=== PATIENT | female | born 1990 | race Two or more races ===

== ENCOUNTER 2016-11-02 22:46 | Emergency (ER) | payer OTHER ==
[2016-11-02] MEDS ORDERED: IOPAMIDOL 370 (76%) 100 ML VIAL IV ONE (22:47)
[2016-11-02] MEDS ORDERED: IBUPROFEN 600 MG TABLET ONE (23:23)
[2016-11-02] MEDS ORDERED: ACETAMINOPHEN 325 MG TABLET ONE (23:23)
[2016-11-02] MEDS ORDERED: LACTATED RINGERS 1,000 ML ONE (23:23)
[2016-11-02 23:49] LABS: PH,URINE 6.5 (5.0-8.0); URINE BILIRUBIN NEGATIVE (NEGATIVE); URINE BLOOD 4+ (NEGATIVE); URINE GLUCOSE (UA) NEGATIVE (NEGATIVE); URINE LEUKOCYTE ESTERASE TRACE (NEGATIVE); URINE NITRITE NEGATIVE (NEGATIVE); URINE PROTEIN 2+ (NEGATIVE); URINE UROBILINOGEN NORMAL (0-1 mg/dl)
[2016-11-02 23:56] LABS: HCG,QUALITATIVE URINE NEGATIVE
[2016-11-02 23:57] LABS: URINE APPEARANCE SL CLOUDY; URINE COLOR DARK YELLOW
[2016-11-03 00:04] LABS: URINE EPITHELIAL CELLS 15-20 /hpf; URINE RBC >100 /hpf
[2016-11-03 00:05] LABS: URINE BACTERIA TRACE
[2016-11-03 01:07] LABS: ABSOLUTE NEUTROPHIL COUNT 10.7 K/mm3 (1.8-7.7); BASO % 0.2 % (0.2-1.0); EOS % 0.1 % (0.9-2.9); HEMATOCRIT 34.5 % (37.0-47.0); HEMOGLOBIN 11.6 gm/l (12.0-16.0); IMM NEUT # 0.1 K/mm3 (0-0.2); IMM NEUT% 1.1 % (0-1); LYMPH # 1.1 (1.0-4.8); LYMPH % 8.2 % (15-45); MEAN CELL VOLUME 85.2 fl (81.0-99.0); MEAN CORPUSCULAR HEMOGLOBIN 28.6 pg (27.0-31.0); MEAN CORPUSCULAR HGB CONC 33.6 g/dl (33.0-37.0); MEAN PLATELET VOLUME 10.4 fl (7.4-10.4); MONO # 0.9 (0.0-0.8); MONO % 7.1 % (4-12); NEUT % 83.3 % (43-75); PLATELET COUNT 210 K/mm3 (130-400); RED CELL DISTRIBUTION WIDTH 13.1 % (11.5-14.5)
[2016-11-03 01:26] LABS: I-STAT CREATININE 0.8 mg/dL (0.6-1.3)
[2016-11-03] MEDS ORDERED: SODIUM CHLORIDE 0.9% 100 ML IV ONE (01:59)
[2016-11-03] MEDS ORDERED: CEFTRIAXONE 1 GRAM DUPLEX 50 ML IV ONE (01:59)
[2016-11-03] MEDS ORDERED: POTASSIUM CHLORIDE 20MEQ/100ML 100 ML IV ONE ×2 (01:59→06:43)
[2016-11-03] MEDS ORDERED: DOXYCYCLINE HYCLATE 100 MG IV VIAL ONE (01:59)
[2016-11-03] MEDS ORDERED: LACTATED RINGERS 1,000 ML ONE (02:24)
[2016-11-03] MEDS ORDERED: VANCOMYCIN HCL 1 G/20 ML VIAL ONE (03:21)
[2016-11-03] MEDS ORDERED: SODIUM CHLORIDE 0.9% 250 ML IV ONE (03:21)
[2016-11-03 03:52] LABS: VENOUS BLOOD GAS BASE EXCESS -0.1 mmol/L (-2.0-2.0); VENOUS BLOOD GAS HCO3 23.3 mmol/L (22.0-27.0)
[2016-11-03] MEDS ORDERED: PROCHLORPERAZINE 5 MG/ML 2 ML VIAL ONE (04:31)
[2016-11-03] MEDS ORDERED: SODIUM CHLORIDE 0.9% 1,000 ML ONE (06:42)
--- NOTE | 2016-11-03 08:14 | RAD ---
PORTABLE CHEST RADIOGRAPH HISTORY: Right central line placement. Frontal portable chest radiograph dated 11/03/2016. COMPARISON: None. FINDINGS: FOCAL AIRSPACE OPACITY: Patchy multifocal airspace opacity predominantly by basilar in distribution. A nodular appearance is identified at the upper lobe distributions. PLEURAL EFFUSION: Small right pleural effusions congested. CARDIOMEDIASTINAL SILHOUETTE: Nonenlarged. Right internal jugular catheter, tip projecting over superior vena cava. PNEUMOTHORAX: None identified. OSSEOUS STRUCTURES: No grossly destructive lesions. IMPRESSION: Multifocal airspace abnormality, subsequent CT examination has been acquired. Correlate for multifocal pneumonia. Right internal jugular catheter, no pneumothorax.
--- NOTE | 2016-11-03 08:20 | CT ---
CHEST CTA HISTORY: Left-sided chest pain with dyspnea and tachycardia. TECHNIQUE: Following the administration of 80 mL Isovue-370 intravenous contrast, contiguous axial images were acquired from the thoracic inlet to the diaphragmatic hiatus for CT pulmonary angiography. 3-D imaging was not performed. FINDINGS: PULMONARY ARTERIAL TREE: Technically adequate enhancement: No dominant filling defects. THORACIC AORTA: Normal caliber. No evidence of dissection. LUNGS: A mixture of ill-defined nodules and masses are identified, interspersed amongst by basilar airspace abnormality, right greater than left. Notably, a few left-sided lesions appear cavitary in nature, measuring up to 2.2 cm in size at the left lower lobe, up to 1.3 cm in size at the lingula. Trace right pleural effusion.. SUNNY AND MEDIASTINUM: Right hilar lymph node measures 12 mm in width. Previous carinal lymph node measures 10 mm in width. Aortopulmonary window lymph node measures 10 mm in width. Subcarinal lymph node measures 12 mm in width. A left hilar lymph node measures 10 mm in width. Evidence of right internal jugular catheter. AXILLAE: No grossly enlarged lymph nodes. UPPER ABDOMEN:No gross mass effect. OSSEOUS STRUCTURES: No grossly destructive lesions. IMPRESSION: 1. No CTA evidence of proximal order pulmonary embolus. 2. Mixed airspace disease and ill-defined nodules/masses of moderately severe extent, several which demonstrate early cavitary change. Findings worrisome for multifocal pneumonia with abscess formation, atypical infection is possible. The differential includes septic emboli. Metastatic lesions with necrosis considered significantly less likely. Mild hilar and mediastinal adenopathy. 3. Right-sided internal jugular catheter. Preliminary report relayed to the Emergency Medicine medical service by Dr. Morris on 11/03/2016 at 0817 hours.
[2016-11-03 10:53] LABS: AMPHETAMINES/METHAMPHETAMINES POSITIVE (NEGATIVE); COCAINE NEGATIVE (NEGATIVE); MARIJUANA POSITIVE (NEGATIVE); METHADONE NEGATIVE (NEGATIVE); OPIATES POSITIVE (NEGATIVE); TRICYCLIC ANTIDEPRESSANTS NEGATIVE (NEGATIVE)
[2016-11-03 16:21] LABS: ALB/GLOB RATIO 0.7 (>1.0); ALBUMIN 3.1 gm/dL (3.5-5.7); CALCIUM 8.8 mg/dL (8.6-10.3); MAGNESIUM 2.2 mg/dL (1.9-2.7)
== END 2016-11-03 07:39 | disposition short-term general hospital (02) ==
LOC: ED 22:46
DX: A41.9 Sepsis, unspecified organism (principal); I26.99 Other pulmonary embolism without acute cor pulmonale; F11.23 Opioid dependence with withdrawal; F17.210 Nicotine dependence, cigarettes, uncomplicated
CPT/HCPCS: 83605; 83690; 81025; 82803; 85025; 87040; 80305; 80053; 83735; 84484; 81001; 71275; 87804; 96375; 99285 ×2; 36556 ×2; 96365 ×2; 96367 ×2; 96368; 51798; 93005; J0780; A9270 ×2; J3480 ×2; J3370; J7120 ×2; J7050 ×2; J7030; Q9967; J0696